=== PATIENT | female | born 1950 | race Caucasian/White ===

== ENCOUNTER → 2016-04-16 | Outpatient (CLI) | payer OTHER ==
--- NOTE | 2016-04-16 15:39 | MA ---
Screening Digital Mammogram With iCAD Analysis Clinical Indications: Routine screening. Technique: Standard cephalocaudal and mediolateral oblique projections are obtained. This examination is processed by the iCAD computer aided detection system. Comparison: March 2015, January 2014, September 2012, August 2011, August 2010, July 2009, January 2008. Breast density: Type B; Scattered fibroglandular densities. Findings: CAD was reviewed. No masses, suspicious calcifications or other signs of malignancy are see n. There has been no significant change in the appearance of either breast. Impression: Negative mammogram. BI-RADS 1. Recommendation: Routine mammographic screening in one year as long as physical examination is negativ [facility] will send a result letter to the patient. Negative mammography should not preclude additional workup of a clinically suspicious finding. The patient's information is entered into a reminder system with a target due date for her next mammo gram.
== END ==
LOC: BMCIMAGING 10:36
DX: Z12.31 Encounter for screening mammogram for malignant neoplasm of breast (principal)
CPT/HCPCS: G0202

== ENCOUNTER 2016-07-15 16:11 | Observation (INO) | payer OTHER ==
[2016-07-15] MEDS ORDERED: NS 1,000 ML IV ONE (16:19)
[2016-07-15] MEDS ORDERED: DILTIAZEM 25 MG/5 ML VIAL IVP ONE (16:20)
[2016-07-15] MEDS ORDERED: DILTIAZEM 125 MG in D5W 125 ML IV ONE (16:20)
--- NOTE | 2016-07-15 16:50 | EDPHY ---
H & P Stated Complaint: Rapid Afib, CP Time Seen by Provider: 07/15/16 16:18 HPI/ROS: CHIEF COMPLAINT: Palpitations HISTORY OF PRESENT ILLNESS: The patient presents to emergency department palpitations that began 2 hours ago after waking up from a nap. She had some mild chest discomfort with the symptoms. The patient denies pleuritic chest pain, recent exertional chest pain, shortness of breath or other acute complaints. The patient does have a history of hypertension. She takes triamterene/hydrochlorothiazide for that condition. Patient does drink alcohol occasionally. She had 2-3 glasses of wine last night with friends. REVIEW OF SYSTEMS: A comprehensive 10 point review of systems is otherwise negative aside from elements mentioned in the history of present illness. - Personal History Current Tetanus Diphtheria and Acellular Pertussis (TDAP): Yes - Medical/Surgical History Hx Asthma: No Hx Chronic Respiratory Disease: No Hx Diabetes: No Hx Cardiac Disease: No Hx Renal Disease: No Hx Cirrhosis: No Hx Alcoholism: No Hx HIV/AIDS: No Hx Splenectomy or Spleen Trauma: No Other PMH: HTN - Social History Smoking Status: Never smoked Constitutional: Initial Vital Signs Temperature (C) 36.8 C 07/15/16 16:20 Heart Rate 128 H 07/15/16 16:20 Respiratory Rate 18 07/15/16 16:20 Blood Pressure 131/88 H 07/15/16 16:20 O2 Sat (%) 98 07/15/16 16:20 O2 Delivery Mode Room Air Allergies/Adverse Reactions: No Known Allergies Allergy (Unverified 07/15/16 16:23) Medical Decision Making - Diagnostics Imaging: Imaging Impressions Chest X-Ray 07/15/16 16:19 Impression: No acute localizing features. ED Course/Re-evaluation: The patient presents to the ED with new onset atrial fibrillation with rapid ventricular response associated with chest pain and mild shortness of breath. The patient has mild ST segment depression noted on her EKG. The patient had an IV established. She was placed on a cardiac sonographer. She received 50 mg diltiazem bolus and was started on a diltiazem drip. The patient underwent close observation in the emergency department. She did have rate control with diltiazem bolus and currently has a heart rate of 101 at 6:00 p.m.. Given the patient's complaints of chest pain, shortness of breath and need for IV medication for rate control she will be admitted to the hospital for observation this evening. Consultation is made with Dr. Dayne Posada from the hospitalist service. I spoke with Ion Castro, PAC with [facility]. He and Dr. Nader Artis will see the patient in consultation tomorrow. Differential Diagnosis: Differential diagnosis considered includes atrial fibrillation, myocardial infarction, pneumonia, pneumothorax, thyrotoxicosis, dehydration, alcohol withdrawal - Data Points Laboratory Results: Laboratory Results 07/15/16 17:16 07/15/16 17:16 07/15/16 07/15/16 17:16 17:16 WBC 6.86 10^3/uL 10^3/uL (3.80-9.50) RBC 5.04 10^6/uL 10^6/uL (4.18-5.33) Hgb 15.8 g/dL g/dL (12.6-16.3) Hct 44.4 % % (38.0-47.0) MCV 88.1 fL fL (81.5-99.8) MCH 31.3 pg pg (27.9-34.1) MCHC 35.6 g/dL g/dL (32.4-36.7) RDW 12.4 % % (11.5-15.2) Plt Count 219 10^3/uL 10^3/uL (150-400) MPV 9.6 fL fL (8.7-11.7) Neut % (Auto) 51.7 % % (39.3-74.2) Lymph % (Auto) 30.9 % % (15.0-45.0) [place] % (Auto) 14.4 % H % (4.5-13.0) Eos % (Auto) 2.3 % % (0.6-7.6) Baso % (Auto) 0.6 % % (0.3-1.7) Nucleat RBC Rel Count 0.0 % % (0.0-0.2) Absolute Neuts (auto) 3.54 10^3/uL 10^3/uL (1.70-6.50) Absolute Lymphs (auto) 2.12 10^3/uL 10^3/uL (1.00-3.00) Absolute Monos (auto) 0.99 10^3/uL H 10^3/uL (0.30-0.80) Absolute Eos (auto) 0.16 10^3/uL 10^3/uL (0.03-0.40) Absolute Basos (auto) 0.04 10^3/uL 10^3/uL (0.02-0.10) Absolute Nucleated RBC 0.00 10^3/uL 10^3/uL (0-0.01) Immature Gran % 0.1 % % (0.0-1.1) Immature Gran # 0.01 10^3/uL 10^3/uL (0.00-0.10) Sodium 141 mEq/L mEq/L (134-144) Potassium 3.2 mEq/L L mEq/L (3.5-5.2) Chloride 106 mEq/L mEq/L (97-110) Carbon Dioxide 25 mEq/l mEq/l (22-31) Anion Gap 10 mEq/L mEq/L (8-16) BUN 25 mg/dL H mg/dL (7-23) Creatinine 0.8 mg/dL mg/dL (0.6-1.0) Estimated GFR > 60 Glucose 96 mg/dL mg/dL (70-100) Calcium 9.4 mg/dL mg/dL (8.5-10.4) Troponin I < 0.012 ng/mL ng/mL (0-0.034) TSH Pending Medications Given: Discontinued Medications Diltiazem HCl (Cardizem 25 Mg/5 Ml Vial) 10 mg IVP EDNOW ONE Stop: 07/15/16 16:21 Last Admin: 07/15/16 16:47 Dose: 10 mg Sodium Chloride (Ns) 1,000 mls @ 0 mls/hr IV ONCE ONE PRN Reason: Wide Open Stop: 07/15/16 16:20 Last Admin: 07/15/16 16:47 Dose: 1,000 mls Diltiazem HCl 125 mg/ Dextrose 125 mls @ 0 mls/hr IV EDNOW ONE; Titrate PRN Reason: Protocol Stop: 07/15/16 16:21 Last Admin: 07/15/16 17:14 Dose: 125 mls Departure - Departure Disposition: [facility] Clinical Impression: Chest pain, Atrial fibrillation with RVR Condition: Fair
--- NOTE | 2016-07-15 16:52 | CPEKG ---
Heart Rate: 143 RR Interval: 420 QRSD Interval: 84 QT Interval: 300 QTC Interval: 463 QRS Ivel: 58 T Wave Ivel: 256 EKG Severity - ABNORMAL ECG - EKG Impression: ATRIAL FIBRILLATION EKG Impression: SINUS TACHYCARDIA Electronically Signed By: Flavio Reyes 15-Jul-2016 17:13:18
[2016-07-15 17:26] LABS: % IMMATURE GRANULYOCYTES 0.1 % (0.0-1.1); ABSOLUTE IMMATURE GRANULOCYTES 0.01 10^3/uL (0.00-0.10); ADD DIFF? NO; ADD MORPH? NO; ADD SCAN? NO; ATYPICAL LYMPHOCYTE FLAG 30 (0-99); FRAGMENT RBC FLAG 0 (0-99); HEMATOCRIT 44.4 % (38.0-47.0); HEMOGLOBIN 15.8 g/dL (12.6-16.3); LEFT SHIFT FLG 0 (0-99); LIPEMIA HEMOLYSIS FLAG 90 (0-99); MEAN CELL HEMOGLOBIN 31.3 pg (27.9-34.1); MEAN CELL HEMOGLOBIN CONCENTR. 35.6 g/dL (32.4-36.7); MEAN CELL VOLUME 88.1 fL (81.5-99.8); MEAN PLATELET VOLUME 9.6 fL (8.7-11.7); PLATELET CLUMPS FLAG 10 (0-99); PLATELET COUNT 219 10^3/uL (150-400); RED BLOOD CELL COUNT 5.04 10^6/uL (4.18-5.33); RED CELL DISTRIBUTION WIDTH 12.4 % (11.5-15.2)
[2016-07-15 17:46] LABS: ANION GAP 10 mEq/L (8-16); CALCIUM 9.4 mg/dL (8.5-10.4); CARBON DIOXIDE 25 mEq/l (22-31); CHLORIDE 106 mEq/L (97-110); CREATININE 0.8 mg/dL (0.6-1.0); GLOMERULAR FILTRATION RATE > 60; GLUCOSE 96 mg/dL (70-100); POTASSIUM 3.2 mEq/L (3.5-5.2); SODIUM 141 mEq/L (134-144)
[2016-07-15 17:57] LABS: TROPONIN I < 0.012 ng/mL (0-0.034)
[2016-07-15] MEDS ORDERED: PROTOCOL POTASSIUM 1 DOSE MISC PRN (22:59)
[2016-07-15] MEDS ORDERED: DILTIAZEM 125 MG in D5W 125 ML IV SCH (23:00)
--- NOTE | 2016-07-15 23:30 | HOSPPROG ---
Hospitalist Progress Note Assessment/Plan: HISTORY AND PHYSICAL CC: Palpitations HISTORY: This woman with no prior history of heart disease comes in with palpitations that started after Desai early this afternoon. She saw her primary care physician who diagnosed atrial fibrillation with EKG. She was transferred to the emergency room where she was found to be in rapid AFib. She was given diltiazem drip in the ER and was transferred up to the crop farmers unit where she is currently evaluated by me. She did not have anything that sounded really like angina and there was no shortness of breath, fever symptoms, pleuritic pain, leg pain or swelling. She gives a history of 2 prior episodes of palpitations 1 3 years ago in 1 of few years before that. These both terminated spontaneously and she did not have any specific evaluation for them. There are no history of symptoms that suggest heart failure, stroke, thyroid disorder and she has not been diagnosed with any of these things. There is no history of atrial fibrillation or heart disease in her family. ROS: Her main complaint otherwise is chronic insomnia. A comprehensive 10 system review revealed no other significant findings PAST MEDICAL HISTORY: Hypertension on treatment with diuretic Insomnia FAMILY MEDICAL HISTORY: No heart or thyroid disease SOCIAL HISTORY: Not particularly heavy drinker, no tobacco lives in [place] MEDICATIONS: The patients list has been reconciled by our clinical pharmacist in the EMR. I have reviewed the list and ordered appropriate medicines. PHYSICAL EXAMINATION: Vital Signs: Heart rate as high as 140s initially on presentation currently now back in sinus rhythm in the 70s. There is minimal hypertension otherwise vitals are normal without fever Dependency Case Manager: Initial EKG with heart rate in the 140s AFib Examination: ( I examined the patient after she had spontaneously converted back to sinus rhythm) General: alert, oriented, good mentation, relaxed Skin: warm, dry, good color, no rash HEENT: normal Neck: no mass or jvd Resps: relaxed Lungs: clear breath sounds Heart: regular, no murmur Abdomen: soft, nondistended, nontender, +BS, no mass Upper Extremities: normal Lower Extremities: no edema, warm No Bleeding or bruising Neurologic: normal speech/language, normal plant superintendent, no focal weakness IV site: looks normal LABORATORY DATA: TSH minimally elevated at 4 half otherwise unremarkable laboratory data RADIOLOGY STUDIES: Chest x-ray done in the ER, my personal review and interpretation images: Normal chest x-ray 12 lead EKG, my personal interpretation of the tracing: Rapid atrial fibrillation with some downsloping ST segment abnormalities suggesting the possibility of rate-related ischemia ASSESSMENT: # NEW ONSET RAPID ATRIAL FIBRILLATION, SPONTANEOUSLY CONVERTED TO SINUS RHYTHM IN HOSPITAL # CHRONIC HYPERTENSION, ON TREATMENT, THIS WILL INCREASE HER FABRICE SCORE # MILDLY ELEVATED TSH INDICATING POSSIBLE MILD HYPOTHYROIDISM This may be the patient's 2nd or 3rd episode of atrial fibrillation but the 1st 2 episodes of palpitations were not evaluated. This episode has spontaneously converted to sinus rhythm. She did have rapid rate but was not in heart failure here. [place] treatment future here will be determining her stroke risk and her stroke prevention strategy. An echocardiogram will be very useful , however as a woman with hypertension there is some risk. She is 66 so age is not a factor. She is not diabetic and has not had any TIA type episodes. Will observe overnight on crop farmers as long as she stays in sinus rhythm should be able to get her home tomorrow. Will get echocardiogram and further assessment of her thyroid function. PLANS: -check free T4 and morning -repeat EKG -Echocardiogram -Dr. Nader nieto has been consulted. Will review with Dr. Artis and determine recommendations regarding stroke prevention I have reviewed the patient's case in detail with Dr. Kevin Reyes Objective: Vital Signs Temp Pulse Resp BP Pulse Ox 36.6 C 68 16 158/101 H 96 07/15/16 20:14 07/15/16 20:14 07/15/16 20:14 07/15/16 20:14 07/15/16 20:14 07/14/16 07/15/16 07/16/16 06:59 06:59 06:59 Intake Total 1000 Balance 1000 ICD10 Worksheet Patient Problems: Problems Problem Status Onset Atrial fibrillation with RVR Acute Chest pain Acute
[2016-07-16 04:30] LABS: ANION GAP 11 mEq/L (8-16); CALCIUM 8.8 mg/dL (8.5-10.4); CARBON DIOXIDE 23 mEq/l (22-31); CHLORIDE 106 mEq/L (97-110); CREATININE 0.7 mg/dL (0.6-1.0); GLOMERULAR FILTRATION RATE > 60; GLUCOSE 92 mg/dL (70-100); MAGNESIUM 1.8 mg/dL (1.6-2.3); POTASSIUM 3.2 mEq/L (3.5-5.2); SODIUM 140 mEq/L (134-144)
[2016-07-16 04:40] LABS: TROPONIN I 0.013 ng/mL (0-0.034)
[2016-07-16] MEDS ORDERED: HYDROCHLOROTHIAZIDE 25 MG TAB PO SCH (09:00)
[2016-07-16] MEDS ORDERED: TRIAMTERENE 50 MG CAP PO SCH (09:00)
[2016-07-16] MEDS ORDERED: MULTIVITAMINS 1 EACH TAB PO SCH (09:00)
--- NOTE | 2016-07-16 09:05 | CPEKG ---
Heart Rate: 55 RR Interval: 1091 P-R Interval: 156 QRSD Interval: 94 QT Interval: 504 QTC Interval: 483 P [place]: 42 QRS [place]: 66 T Wave [place]: 226 EKG Severity - ABNORMAL ECG - EKG Impression: SINUS RHYTHM EKG Impression: ABNORMAL T, CONSIDER ISCHEMIA, ANT-LAT LEADS EKG Impression: SINUS RHYTHM HAS REPLACED ATRIAL FIBRILLATION EKG Impression: ST/T WAVE CHANGES ARE NEW IN OMPARISON TO PRIOR Electronically Signed By: Girish Bernstein 18-Jul-2016 00:53:38
--- NOTE | 2016-07-16 09:12 | PDCARCONS ---
Cardiology Consult Reason for Consult: Atrial fibrillation Chief Complaint: Racing heart rate Requesting Physician: Dr. Adilson Reyes History Information - Allergies/Home Medication List Allergies/Adverse Reactions: No Known Allergies Allergy (Unverified 07/15/16 16:23) Home Medications: [place]bals/Supplements -Info Only 1 ea PO DAILY 07/15/16 [Last Taken Unknown] Ibuprofen [Advil] 200 mg PO PRN PRN 07/15/16 [Last Taken 07/14/16] Multivitamins [Multivitamin (*)] 1 each PO DAILY 07/15/16 [Last Taken Unknown] Triamterene/Hydrochlorothiazid [Triamterene-Hctz 50-25 mg Cap] 1 each PO DAILY 07/15/16 [Last Taken 07/15/16] - Social History Smoking Status: Never smoked Physical Exam Temp Pulse Resp BP Pulse Ox 36.7 C 48 L 18 158/76 H 94 07/16/16 04:00 07/16/16 04:00 07/16/16 04:00 07/16/16 04:00 07/16/16 04:00 Lab and Imaging 07/15/16 17:16 07/16/16 03:40 WBC 6.86 10^3/uL (3.80-9.50) 07/15/16 17:16 RBC 5.04 10^6/uL (4.18-5.33) 07/15/16 17:16 Hgb 15.8 g/dL (12.6-16.3) 07/15/16 17:16 Hct 44.4 % (38.0-47.0) 07/15/16 17:16 MCV 88.1 fL (81.5-99.8) 07/15/16 17:16 MCH 31.3 pg (27.9-34.1) 07/15/16 17:16 MCHC 35.6 g/dL (32.4-36.7) 07/15/16 17:16 RDW 12.4 % (11.5-15.2) 07/15/16 17:16 Plt Count 219 10^3/uL (150-400) 07/15/16 17:16 MPV 9.6 fL (8.7-11.7) 07/15/16 17:16 Neut % (Auto) 51.7 % (39.3-74.2) 07/15/16 17:16 Lymph % (Auto) 30.9 % (15.0-45.0) 07/15/16 17:16 [place] % (Auto) 14.4 % (4.5-13.0) H 07/15/16 17:16 Eos % (Auto) 2.3 % (0.6-7.6) 07/15/16 17:16 Baso % (Auto) 0.6 % (0.3-1.7) 07/15/16 17:16 Nucleat RBC Rel Count 0.0 % (0.0-0.2) 07/15/16 17:16 Absolute Neuts (auto) 3.54 10^3/uL (1.70-6.50) 07/15/16 17:16 Absolute Lymphs (auto) 2.12 10^3/uL (1.00-3.00) 07/15/16 17:16 Absolute Monos (auto) 0.99 10^3/uL (0.30-0.80) H 07/15/16 17:16 Absolute Eos (auto) 0.16 10^3/uL (0.03-0.40) 07/15/16 17:16 Absolute Basos (auto) 0.04 10^3/uL (0.02-0.10) 07/15/16 17:16 Absolute Nucleated RBC 0.00 10^3/uL (0-0.01) 07/15/16 17:16 Immature Gran % 0.1 % (0.0-1.1) 07/15/16 17:16 Immature Gran # 0.01 10^3/uL (0.00-0.10) 07/15/16 17:16 Sodium 140 mEq/L (134-144) 07/16/16 03:40 Potassium 3.2 mEq/L (3.5-5.2) L 07/16/16 03:40 Chloride 106 mEq/L (97-110) 07/16/16 03:40 Carbon Dioxide 23 mEq/l (22-31) 07/16/16 03:40 Anion Gap 11 mEq/L (8-16) 07/16/16 03:40 BUN 20 mg/dL (7-23) 07/16/16 03:40 Creatinine 0.7 mg/dL (0.6-1.0) 07/16/16 03:40 Estimated GFR > 60 07/16/16 03:40 Glucose 92 mg/dL (70-100) 07/16/16 03:40 Calcium 8.8 mg/dL (8.5-10.4) 07/16/16 03:40 Magnesium 1.8 mg/dL (1.6-2.3) 07/16/16 03:40 Troponin I 0.013 ng/mL (0-0.034) 07/16/16 03:40 TSH 4.760 uIU/mL (0.465-4.680) H 07/15/16 17:16 Free T4 1.16 ng/dL (0.59-2.19) 07/16/16 03:40 Free T3 3.78 pg/mL (2.77-5.27) 07/16/16 03:40
[2016-07-16 09:19] VITALS: RESP 12
[2016-07-16] MEDS ORDERED: POTASSIUM CL 10 MEQ TAB PO ONE (09:24)
--- NOTE | 2016-07-16 10:32 | GCON ---
[f rep st] CONSULTATION REFERRING PHYSICIAN: Dr. Adilson Reyes. PRIMARY CARE PHYSICIAN: Dr. Lorraine Copeland. INDICATION FOR VISIT: Rapid atrial fibrillation. INDICATION FOR CONSULTATION: Rapid atrial fibrillation. HISTORY OF PRESENT ILLNESS: The patient is a pleasant 66-year-old female with history of hypertension, who was admitted through the emergency room yesterday with first documented episode of rapid atrial fibrillation. The patient suffers from insomnia, and went down for a nap around 1 p.m. yesterday afternoon , and woke at 2 p.m. with her heart racing. She had associated tightening in her throat, but denies any chest discomfort with radiation, nausea, diaphoresis or shortness of breath. She did feel a little bit lightheaded. She took her blood pressure at home, and it was 98/80 mmHg, with a heart rate of 101 beats per minute. The patient lives in [place], and instead of driving herself to the hospital immediately, she stopped by the local Dr. Cedeno's office and was found in rapid atrial fibrillation. He called an ambulance, and she was sent by EMS to [facility]. Upon presentation to the emergency room, the patient has initial 12-lead EKG showed atrial fibrillation with a ventricular rate of 143 beats per minute. There was [address]-segment depression and T-wave inversions in the inferolateral leads. She was placed on a diltiazem drip, which improved ventricular rate, however, she has been hypertensive for the duration of her visit here, with a peak of 158/90 mmHg last night. The patient converted on diltiazem IV drip to normal sinus rhythm, around the time she arrived to the PCU last night, and she has remained in normal sinus rhythm overnight. The patient's sinus heart rates are typically running in the 50s. She is no longer on the diltiazem drip. Aside from feeling very fatigued from additional lack of sleep, she has no other medical complaints this morning. We were asked by the hospitalist service to cancer genetic counselor regarding care and further management of the patient's atrial fibrillation. PAST MEDICAL HISTORY: Hypertension, insomnia, hyperlipidemia. The patient thinks that she has possibly had similar, but less severe episodes of racing heart rate in the past, but has never been previously diagnosed with atrial fibrillation. 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 CURRENT MEDICATIONS: Triamterene/hydrochlorothiazide 50/25 mg p.o. once daily and multivitamin. ALLERGIES: No known drug allergies. FAMILY HISTORY: No significant history of cardiovascular disease in her family. SOCIAL HISTORY: The patient lives alone in the [place] area. 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 She has children who live locally. She smoked briefly in her teens. She does not use any significant amount of alcohol. REVIEW OF SYSTEMS: A complete 10-point review of systems was reviewed, and is otherwise negative at this time. PHYSICAL EXAM: VITAL SIGNS: Temperature afebrile, heart rate 52 beats per minute, in sinus rhythm, blood pressure 158/76 mmHg. Oxygen saturation is 94% on room air. GENERAL: Alert and oriented x3. No apparent distress. HEENT: Normocephalic, atraumatic. No scleral icterus. NECK: No masses or goiters. Carotid pulses are 2+ bilaterally, with brisk upstroke. HEART: Regular rate and rhythm, without murmurs, gallops, or rubs. LUNGS: Clear to auscultation bilaterally without rhonchi, rales, or wheezes. ABDOMEN: Soft, nontender, nondistended. Bowel sounds are heard in all 4 quadrants. EXTREMITIES: Capillary refill is less than 2 seconds. No significant hypertrophy or atrophy. No peripheral edema is present. NEUROLOGIC: Cranial nerves 2-12 are grossly intact. LABORATORY DATA: Complete blood count is normal. Chemistry panel is remarkable for a low potassium level of 3.2, that has been stable on repeat. TSH was 4.760, with normal T3 and T4. Troponins were negative x2. DIAGNOSTIC STUDIES: 1. Chest x-ray, that is negative for any signs of congestive heart failure, COPD. 2. Transthoracic echocardiogram with preliminary report showing normal cardiac structure and function. 3. A 12-lead EKG from this morning shows normal sinus rhythm at 55 beats per minute, with normal QRS axis. There are nonspecific T-wave flattening and T- wave inversions diffusely. We do not have a prior EKG for comparison. IMPRESSION: 1. First documented episode of atrial fibrillation with rapid ventricular rate. The patient converted to normal sinus rhythm last evening while on diltiazem IV drip. The diltiazem has since been continued, and the patient remains in sinus bradycardia. FABRICE score is 1, with a CHADS-VASc score of 3. She does meet criteria to begin oral anticoagulation. I do not feel like this patient would tolerate an AV robi blocking agent due to baseline sinus bradycardia. 2. Hypertension. 3. Hypokalemia. 4. Elevated thyroid stimulating hormone with normal T3 and T4. 5. Chronic insomnia without previous diagnosis of sleep apnea or sleep- disordered breathing. 6. Abnormal 12-lead EKG. 7. Hyperlipidemia. PLAN: 1. Start oral anticoagulation with Eliquis 5 mg p.o. twice daily. 2. Outpatient nuclear stress testing. 3. Outpatient nocturnal oximetry. 4. Potassium repletion today, prior to hospital discharge. I do think this patient can be discharged today with further outpatient workup through our office. She will additionally need a Holter monitor for further evaluation of her sinus rates and further surveillance of atrial fibrillation. She will likely need longer term ambulatory EKG monitoring in the future as well. Her coronary artery diseases status is unknown, however, given her recent LDL cholesterol of 174 mg/dL, there should be further consideration for resuming statin therapy. /[id number]/MODL MTDD
[2016-07-16 12:24] VITALS: BP 145/80; PULSE 56; TEMP 98.8; O2SAT 93
--- NOTE | 2016-07-16 13:51 | HOSPPROG ---
Hospitalist Progress Note Assessment/Plan: new AF converted home today see dc summary Subjective: converted Objective: Vital Signs Temp Pulse Resp BP Pulse Ox 37.1 C 56 L 12 145/80 H 93 07/16/16 12:00 07/16/16 12:00 07/16/16 12:00 07/16/16 12:00 07/16/16 12:00 Laboratory Results 07/16/16 03:40 07/15/16 07/16/16 07/17/16 05:59 05:59 05:59 Intake Total 1400 Balance 1400 - Physical Exam Constitutional: no apparent distress Eyes: PERRL, anicteric sclera Ears, Nose, Mouth, Throat: moist mucous membranes, hearing normal Cardiovascular: regular rate and rhythym, no murmur, rub, or gallop, No systolic murmur Respiratory: no respiratory distress, no rales or rhonchi Gastrointestinal: normoactive bowel sounds, soft, non-tender abdomen Genitourinary: No de luna in urethra Skin: warm Musculoskeletal: full muscle strength Neurologic: AAOx3 ICD10 Worksheet Patient Problems: Problems Problem Status Onset Atrial fibrillation with RVR Acute Chest pain Acute
--- NOTE | 2016-07-16 14:14 | GDS ---
[f rep st] DISCHARGE SUMMARY DISCHARGE DIAGNOSES: 1. Hypertension. 2. New atrial fibrillation. CONSULTS: Cardiology. PROCEDURE: Echocardiogram. The preliminary read is normal, but I await a detailed report. HOSPITAL COURSE: The patient presented with palpitations. She had some chest pressure. She had negative troponins and nonischemic EKG. She converted on her own with diltiazem drip which was stopped. She has resting bradycardia, so robi agents were not prescribed. She is discharged home with outpatient Cardiology followup. /[id number]/MODL MTDD
--- NOTE | 2016-07-17 11:43 | ECHO ---
[id number] + + [address] : : [place] [address] : : [phone] + + Adult Echocardiographic Report + + :Name: RICHARD LEYVAMakenna Date: 07/16/2016 07:50 AM BP: 158/76 mmHg : : Hospital Admission Number: [id number] Lo cation: 212: :: 1950 Gender: Female Height: 68 in : :Age: 66 yrs Race: Weight: 15 6 lb : :Reason For Study: atrial fibrillation : : BSA: 1.8 m eters2 : :History: afib : + + MMode/2D Measurements \T\ Calculations IVSd: 1.2 cm RVDd: 3.3 cm FS: 47.3 % Ao root diam: LVPWd: 0.92 cm LVIDd: 4.5 cm EDV(Teich): 2.5 cm LVIDs: 2.4 cm 90.8 ml ESV(Teich): 19.2 ml EF(Teich): 78.8 % LVLd ap4: 8.3 cm SV(MOD-sp4): EDV(MOD-sp4): 68.0 ml 113.0 ml LVLs ap4: 6.9 cm ESV(MOD-sp4): 45.0 ml EF(MOD-sp4): 60.2 % Normal Measurement Values: + + :LVIDd (3.5-5.7cm) IVSd (0.6-1.1cm) LVPWd (0.6-1.1cm) Aortic Root (2.0-3.7cm)Left Atrium (1.5-4.0cm): :LV Vol(d) (76-115ml) LV Vol(s) (29-48ml) Ejec Fraction (50-65%)PV Frantz (0.6- 1.2m/s) TV Frantz (0.4-1.0m/s) : :MV E Frantz (0.8-1.0m/s)MV A Frantz (0.3-1.0m/s)LVOT Frantz (0.7-1.2m/s) Asc Ao Frantz ( 0.9-1.8m/s) : + + Doppler Measurements \T\ Calculations MV E max frantz: Ao V2 max: LV V1 max: PA V2 max: 83.9 cm/sec 97.9 cm/sec 87.9 cm/sec 59.1 cm/sec MV A max frantz: Ao max PG: LV V1 max PG: PA max P.8 cm/sec 3.8 mmHg 3.1 mmHg 1.4 mmHg MV E/A: 0.89 MV dec time: 0.23 sec TR max frantz: 194.9 cm/sec TR max P.2 mmHg RAP systole: 5.0 mmHg RVSP(TR): 20.2 mmHg Left Ventricle The left ventricle is normal in size and function. There is mild concentric left ventricular hypertrophy. Ejection Fraction = 60-65%. There is Doppler evidence for diastolic dysfunction. No regional wall motion abnormalities noted. Right Ventricle The right ventricle is normal in size and function. Atria The left atrial size is normal. Right atrial size is normal. Mitral Valve The mitral valve leaflets appear thickened, but open well. There is no mitral valve stenosis. There is trace to mild mitral regurgitation. Tricuspid Valve The tricuspid valve is normal in structure and function. There is no tricuspid stenosis. There is trace tricuspid regurgitation. Right ventricular systolic pressure is 20mmHg. Aortic Valve The aortic valve is trileaflet. The aortic valve is normal in structure and function. There is no aortic stenosis. There is no aortic insufficiency. Pulmonic Valve The pulmonic valve is normal in structure and function. Great Vessels The aortic root is normal size. Pericardium/Pleural There is no pericardial effusion. Conclusion A two-dimensional transthoracic echocardiogram with M-mode and Doppler was performed. The left ventricle is normal in size and function. Ejection Fraction = 60-65%. There is trace to mild mitral regurgitation. Right ventricular systolic pressure is 20mmHg. There is mild concentric left ventricular hypertrophy. There is trace tricuspid regurgitation. The aortic valve is normal in structure and function. There is Doppler evidence for diastolic dysfunction. Final Reading Physician: Farhat Artis electronically signed on 07/17/2016 11:42 AM Ordering Physician: Rose Carlson Performed By: Sandi Cat
== END 2016-07-16 14:39 | disposition home or self-care (01) ==
LOC: EDUNIT# → F2W 20:07
PROVIDERS: ADMIT Internal Medicine; ATTEND Internal Medicine
DX: I48.91 Unspecified atrial fibrillation (principal); I10 Essential (primary) hypertension; G47.09 Other insomnia; E87.6 Hypokalemia
CPT/HCPCS: 71010; 93005; 93306; G0378; 84481-90; 96365; 96366

== ENCOUNTER → 2016-08-28 | Outpatient (CLI) | payer OTHER | LOC: FIMAGING 13:01 | PROVIDERS: ATTEND Family Medicine | DX: R05 Cough (principal) ==

== ENCOUNTER → 2017-03-13 | Outpatient (CLI) | payer OTHER | LOC: BMCIMAGING 11:06 | PROVIDERS: ATTEND Family Medicine | DX: Z13.820 Encounter for screening for osteoporosis (principal) ==

== ENCOUNTER → 2017-05-13 | Outpatient (CLI) | payer OTHER | LOC: BMCIMAGING 12:32 | PROVIDERS: ATTEND Family Medicine | DX: Z12.31 Encounter for screening mammogram for malignant neoplasm of breast (principal) ==

== ENCOUNTER → 2018-05-21 | Outpatient (CLI) | payer OTHER | LOC: BMCIMAGING 14:00 | PROVIDERS: ATTEND Family Medicine | DX: Z12.31 Encounter for screening mammogram for malignant neoplasm of breast (principal) ==

== ENCOUNTER 2018-08-04 11:37 | Emergency (ER) | payer OTHER ==
--- NOTE | 2018-08-04 12:18 | EDPHY ---
H & P Time Seen by Provider: 08/04/18 12:17 HPI/ROS: Chief complaint. Atrial fibrillation HPI. 68-year-old female with a history of atrial fibrillation presents emergency department with palpitations that started this morning. They awoke the patient at 8:00 a.m. Today. She had some slight tightness in her throat but no anterior chest pain. It felt similar to previous atrial fibrillation. She took a metoprolol at 9:00 a.m.. She did then have some dizziness this anxiety. The time she arrived in the emergency department she felt like her heart was back to normal. Nose sickness. She is on Eliquis for the atrial fibrillation. ROS 10 systems were reviewed and negative with the exception of the elements mentioned in the history of present illness Past Medical/Surgical History: Hypertension, atrial fibrillation, dyslipidemia Social History: Single, nonsmoker, no alcohol Smoking Status: Never smoked Physical Exam: General Appearance: Alert pleasant well-developed female mild distress. Vital signs are stable Eyes: Pupils equal and round no pallor or injection. ENT, Mouth: Mucous membranes are moist. Respiratory: There are no retractions, lungs are clear to auscultation. Cardiovascular: Regular rate and rhythm. Gastrointestinal: Abdomen is soft and nontender, no masses, bowel sounds normal. Neurological: Awake and alert, sensory and motor exams grossly normal. Skin: Warm and dry, no rashes. Musculoskeletal: Neck is supple nontender. Extremities symmetrical, full range of motion. Psychiatric: Patient is oriented X 3, there is no agitation. Constitutional: Initial Vital Signs Temperature (C) 36.7 C 08/04/18 11:40 Heart Rate 62 08/04/18 11:40 Respiratory Rate 18 08/04/18 11:40 Blood Pressure 162/104 H 08/04/18 11:40 O2 Sat (%) 97 08/04/18 11:40 O2 Delivery Mode Room Air Allergies/Adverse Reactions: No Known Allergies Allergy (Verified 08/04/18 11:39) Home Medications: Medication Instructions Recorded Herbals/Supplements -Info Only 1 ea PO DAILY 07/15/16 Ibuprofen [Advil] 200 mg PO PRN PRN 07/15/16 Multivitamins [Multivitamin (*)] 1 each PO DAILY 07/15/16 Triamterene/Hydrochlorothiazid 1 each PO DAILY 07/15/16 [Triamterene-Hctz 50-25 mg Cap] Apixaban [Eliquis] 5 mg PO BID #0 tab 07/16/16 Lipitor 08/04/18 Medical Decision Making - Diagnostics EKG Interpretation: EKG interpreted by me shows normal sinus rhythm normal interval and axis. QRS is normal. There is no significant ST elevation or depression. There is T- wave inversion leads V2 through V4 suggestive of ischemia. Otherwise no arrhythmia. The rate is 55 Review of old EKGs shows the previous T-wave inversion in July 2016. There is no significant change in the EKG today from previous EKG Procedures: IV normal saline, monitor ED Course/Re-evaluation: Re-evaluation at 1:15 p.m. Patient is stable. She is in sinus rhythm. She has no chest pain. The patient and I discussed laboratory evaluation and EKG findings, treatment plan including criteria for return importance of follow-up further evaluation. She expresses understanding and Differential Diagnosis: Atrial fibrillation now converted to normal sinus rhythm. No evidence of acute coronary syndrome - Data Points Laboratory Results: Laboratory Results 08/04/18 11:55 08/04/18 11:55 08/04/18 08/04/18 08/04/18 12:25 11:55 11:55 WBC 4.92 10^3/uL 10^3/uL (3.80-9.50) RBC 5.05 10^6/uL 10^6/uL (4.18-5.33) Hgb 15.6 g/dL g/dL (12.6-16.3) Hct 46.0 % % (38.0-47.0) MCV 91.1 fL fL (81.5-99.8) MCH 30.9 pg pg (27.9-34.1) MCHC 33.9 g/dL g/dL (32.4-36.7) RDW 12.9 % % (11.5-15.2) Plt Count 225 10^3/uL 10^3/uL (150-400) MPV 9.6 fL fL (8.7-11.7) Neut % (Auto) 58.0 % % (39.3-74.2) Lymph % (Auto) 26.2 % % (15.0-45.0) Baca % (Auto) 13.0 % % (4.5-13.0) Eos % (Auto) 2.0 % % (0.6-7.6) Baso % (Auto) 0.8 % % (0.3-1.7) Nucleat RBC Rel Count 0.0 % % (0.0-0.2) Absolute Neuts (auto) 2.85 10^3/uL 10^3/uL (1.70-6.50) Absolute Lymphs (auto) 1.29 10^3/uL 10^3/uL (1.00-3.00) Absolute Monos (auto) 0.64 10^3/uL 10^3/uL (0.30-0.80) Absolute Eos (auto) 0.10 10^3/uL 10^3/uL (0.03-0.40) Absolute Basos (auto) 0.04 10^3/uL 10^3/uL (0.02-0.10) Absolute Nucleated RBC 0.00 10^3/uL 10^3/uL (0-0.01) Immature Gran % 0.0 % % (0.0-1.1) Immature Gran # 0.00 10^3/uL 10^3/uL (0.00-0.10) Sodium 141 mEq/L mEq/L (135-145) Potassium 3.4 mEq/L L mEq/L (3.5-5.2) Chloride 104 mEq/L mEq/L (97-110) Carbon Dioxide 28 mEq/l mEq/l (22-31) Anion Gap 9 mEq/L mEq/L (6-14) BUN 19 mg/dL mg/dL (7-23) Creatinine 0.7 mg/dL mg/dL (0.6-1.0) Estimated GFR > 60 Glucose 64 mg/dL L mg/dL (70-100) Calcium 9.4 mg/dL mg/dL (8.5-10.4) POC Troponin I 0.00 ng/mL ng/mL (0.00-0.08) Point of Care Test Results: Chemistry 08/04/18 12:25 POC Troponin I 0.00 ng/mL ng/mL (0.00-0.08) Departure - Departure Disposition: Home, Routine, Self-Care Clinical Impression: Atrial fibrillation Qualifiers: Atrial fibrillation type: paroxysmal Qualified Code(s): I48.0 - Paroxysmal atrial fibrillation Condition: Good Instructions: A-fib (Atrial Fibrillation) (ED) Additional Instructions: Continue regular medications May take metoprolol if needed for atrial fibrillation Return for chest discomfort, trouble breathing Follow-up with Cardiology for continuing symptoms Referrals: Lorraine Copeland MD [Primary Care Provider] - As per Instructions Farhat Artis MD [Medical Doctor] - As per Instructions
[2018-08-04 12:27] LABS: PLATELET COUNT 225 10^3/uL (150-400)
[2018-08-04 13:07] VITALS: BP 134/67
--- NOTE | 2018-08-04 13:15 | CPEKG ---
Test Reason : OPEN Blood Pressure : / mmHG Vent. Rate : 055 BPM Atrial Rate : 055 BPM P-R Int : 145 ms QRS Dur : 091 ms QT Int : 484 ms P-R-T Axes : 048 056 001 degrees QTc Int : 463 ms Sinus rhythm Abnormal T, consider ischemia, anterior leads Confirmed by Ha Santos ([id number]) on 08/04/2018 1:14:50 PM Referred By: PHYSICIAN ED Confirmed By:Ha Santos
== END 2018-08-04 13:41 | disposition home or self-care (01) ==
DX: I48.0 Paroxysmal atrial fibrillation (principal); I10 Essential (primary) hypertension; E78.5 Hyperlipidemia, unspecified
CPT/HCPCS: 84484-ER